=== PATIENT | male | born 1985 | race Caucasian/White ===

== ENCOUNTER → 2016-12-04 | Outpatient (CLI) | payer OTHER | LOC: RAD 19:24 | DX: I10 Essential (primary) hypertension (principal); M81.0 Age-related osteoporosis without current pathological fracture | CPT/HCPCS: 72100 ==

== ENCOUNTER → 2020-07-28 | Outpatient (CLI) | payer OTHER ==
[~2020-07-28] MED LIST: ANTIVERT 12.512.5 MG PO; FLONASE 0.05% N16 GM; IBUPROFEN800 MG PO; MELOXICAM15 MG PO; NORFLEX 100 MG100 MG PO; OFLOXACIN5 M1 OT; OMNICEF 300 MG300 MG PO; PREDNISONE 50 M50 MG PO; TESSALON PERLE100 MG PO; Voltaren Gel 1 % TOP
== END ==
LOC: EXRD 10:09
DX: M54.5 Low back pain (principal); M41.9 Scoliosis, unspecified; M48.07 Spinal stenosis, lumbosacral region
CPT/HCPCS: 72100

== ENCOUNTER → 2021-03-27 | Outpatient (CLI) | payer OTHER | LOC: EXRD 10:38 | DX: M79.672 Pain in left foot (principal) | CPT/HCPCS: 73630 ==

== ENCOUNTER → 2021-05-25 | Outpatient (CLI) | payer OTHER | LOC: EXRD 11:20 | DX: U07.1 COVID-19 (principal); R91.8 Other nonspecific abnormal finding of lung field; J98.11 Atelectasis | CPT/HCPCS: 71046 ==